=== PATIENT | female | born 1985 | race Caucasian/White ===

== ENCOUNTER 2017-04-14 14:07 | Emergency (ER) | payer MEDICAID ==
[~2017-04-14] VITALS: Ht 167.6 cm; Wt 118.0 kg
[~2017-04-14 14:07] MED LIST: CHLO.12%30 SSP; CLIN150 PO
[2017-04-14 14:14] VITALS: BP 133/78; PULSE 80; RESP 18; TEMP 98.6; O2SAT 99
[2017-04-14] MEDS ORDERED: PROM25TA10 PO (15:39)
[2017-04-14] MEDS ORDERED: PROMETHAZINE INJ 25 MG/ML VIAL IM ONE (15:45)
--- NOTE | 2017-04-14 15:47 | PD ---
HPI Chief Complaint: GI Complaint Time Seen by Provider: 15:24 Travel History International Travel<30 days: No Contact w/Intl Traveler<30days: No Traveled to known affect area: No History of Present Illness HPI The patient was seen and examined in the presence of the nurse. This patient complains of nausea for 2 weeks. No abdominal or pelvic pain. Her menstrual periods are always irregular. Severity is mild to moderate. No alleviating factors. No fever or urinary complaints. PFSH Past Medical History Medical History: Denies Significant Hx Diminished Hearing: No Tetanus Vaccination: < 5 Years Influenza Vaccination: No ?: Unknown LMP: unknown Ovarian Cysts: Yes (Right oophrectomy) Past Surgical History Cholecystectomy: Yes Gynecologic Surgery: Yes (OOPHRECTOMY) Other Surgery: Yes Social History Alcohol Use: No Tobacco Use: Yes (1 PACK EVERY 2-3 DAYS) Substance Use: No Allergies-Medications (Allergen,Severity, Reaction): Coded Allergies: No Known Allergies (Unverified , 04/14/17) Reported Meds & Prescriptions Reported Meds & Active Scripts Active Phenergan (Promethazine HCl) 25 Mg Tablet 25 Mg PO Q6H PRN Review of Systems General / Constitutional: No: Fever Eyes: No: Visual changes HENT: No: Headaches Cardiovascular: No: Chest Pain or Discomfort Respiratory: No: Shortness of Breath Gastrointestinal: Positive: Nausea, Diarrhea, No: Abdominal Pain Genitourinary: No: Dysuria Musculoskeletal: No: Pain Skin: No Rash Neurologic: No: Weakness Psychiatric: No: Depression Endocrine: No: Polydipsia Hematologic/Lymphatic: No: Easy Bruising Physical Exam Narrative GENERAL: Well-nourished, well-developed patient in no apparent distress. SKIN: Focused skin assessment reveals no rash and nodules. Skin is Warm and dry. HEAD: Atraumatic. Normocephalic. EYES: Pupils equal and round. No scleral icterus. No injection or drainage. ENT: No nasal bleeding or discharge. Mucous membranes pink and moist. NECK: Trachea midline. No JVD. CARDIOVASCULAR: Regular rate and rhythm. No murmur appreciated. RESPIRATORY: No accessory muscle use. Clear to auscultation. Breath sounds equal bilaterally. GASTROINTESTINAL: Abdomen soft, non-tender, nondistended. Hepatic and splenic margins not palpable. MUSCULOSKELETAL: No obvious deformities. No clubbing. No cyanosis. No edema. NEUROLOGICAL: Awake and alert. No obvious cranial nerve deficits. Motor grossly within normal limits. Normal speech. PSYCHIATRIC: Appropriate mood and affect; insight and judgment normal. Data Data Last Documented VS Vital Signs Date Time Temp Pulse Resp B/P Pulse Ox O2 Delivery O2 Flow Rate FiO2 04/14/17 14:14 98.6 80 18 133/78 99 Orders Promethazine Inj (Phenergan Inj) (04/14/17 15:45) MDM Medical Decision Making Medical Screen Exam Complete: Yes Emergency Medical Condition: Yes Medical Record Reviewed: Yes Differential Diagnosis Morning sickness, ileus, colitis Narrative Course I have reviewed the patient's electronic medical record. Patient's exam is normal and she is euvolemic with normal vital signs Urine is positive This would Explain her nausea I gave her Phenergan injection and prescription for same. We had a lengthy discussion about the category C nature of this medication and see except the risk and would like to have a prescription for it. I wonder about potential sedation as well. Diagnosis Primary Impression: Nausea and vomiting during prior to 22 weeks gestation Departure Forms: Tests/Procedures Additional Instructions: Follow-up with [facility] physician for care Small frequent bland meals The patient was warned about potential sedation for the medications they will receive on prescription. Med/Other Pt SpecificInfo: Prescription(s) given Scripts Promethazine (Phenergan)25 Mg [id number] Mg PO Q6H PRN (NAUSEA OR VOMITING) #20 TAB Ref 0 Prov:Sridhar Saunders MD 04/14/17 Disposition: 01 DISCHARGE HOME Condition: Stable Sridhar Saunders MD Apr 14, 2017 15:47
== END 2017-04-14 16:03 | disposition home or self-care (01) ==
LOC: PHED 14:07
DX: O21.0 Mild hyperemesis gravidarum (principal); Z3A.00 Weeks of gestation of pregnancy not specified
CPT/HCPCS: 84703; 96372; 99284; J2550